=== PATIENT | male | born 1955 | race Caucasian/White ===

== ENCOUNTER 2020-09-30 05:20 | Day surgery (SDC) | payer MEDICARE, MEDICAID ==
[2020-09-22 15:51] LABS: BASOPHILS # (AUTO) 0.1 X10'3 (0-0.2); BASOPHILS % (AUTO) 1.2 % (0-1); EOSINOPHILS # (AUTO) 0.4 X10'3 (0-0.9); EOSINOPHILS % (AUTO) 5.4 % (0-6); LYMPHOCYTES # (AUTO) 2.1 X10'3 (1.1-4.8); LYMPHOCYTES % (AUTO) 25.4 % (21-51); MEAN CORPUSCULAR HEMOGLOBIN 25.6 PG (27.0-31.0); MEAN CORPUSCULAR HGB CONC 31.8 g/dL (33.0-36.5); MEAN CORPUSCULAR VOLUME 80.7 FL (78-98); MEAN PLATELET VOLUME 9.5 FL (7.4-10.4); MONOCYTES # (AUTO) 0.8 X10'3 (0-0.9); MONOCYTES % (AUTO) 9.6 % (2-12); NEUTROPHILS # (AUTO) 4.8 X10'3 (1.8-7.7); NEUTROPHILS % (AUTO) 58.4 % (42-75); PRE OP HEMATOCRIT 42.1 % (42.0-52.0); PRE OP HEMOGLOBIN 13.4 g/dL (14.0-17.9); PRE OP PLATELET COUNT 325 X10'3 (140-440); RED BLOOD COUNT 5.22 X10'6 (4.70-6.10); RED CELL DISTRIBUTION WIDTH 16.7 % (11.5-14.5)
[2020-09-22 16:05] LABS: PRE OP INR 1.1 INR; PRE OP PROTIME 11.1 SECONDS (9.0-12.0)
[2020-09-22 16:07] LABS: ALBUMIN 3.9 G/DL (3.4-5.0); ALKALINE PHOSPHATASE 65 IU/L (46-116); BLOOD UREA NITROGEN 18 MG/DL (7-18); BUN/CREATININE RATIO 18.2 (5.4-32.0); CALCIUM 8.9 MG/DL (8.5-10.1); CHLORIDE 103 MMOL/L (99-107); CREATININE 0.99 MG/DL (0.60-1.10); PRE OP ALT 30 U/L (30-65); PRE OP ANION GAP 9 (8-16); PRE OP AST 19 U/L (10-37); PRE OP BILIRUB, TOTAL 0.4 MG/DL (0.0-1.0); PRE OP GLUCOSE 109 MG/DL (70-104); PRE OP POTASSIUM 3.9 MMOL/L (3.4-5.1); PRE OP SODIUM 138 MMOL/L (135-145); TOTAL CARBON DIOXIDE 25.8 MMOL/L (24-32); TOTAL PROTEIN 7.7 G/DL (6.4-8.2); eGFR 75 ML/MIN
[~2020-09-30] VITALS: Ht 175.3 cm; Wt 116.6 kg
[2020-09-30] VITALS (16 sets, daily range): BP systolic 94–142; BP diastolic 39–75
[~2020-09-30 05:20] MED LIST: FLO0.4C PO; GLACOMA EYE DROPS EACHEYE; LOSA1TAB41 PO; METO-395 PO; OMEP-50 PO; ringers solution, lacted 1,000 ML IV SCH
[2020-09-30] MEDS ORDERED: ceFAZolin 2gm in dextrose, iso 50 ML IV ONE (05:30)
[2020-09-30] MEDS ORDERED: vancomycin 1,500 MG in NS 300ml IV soln IV ONE (05:30)
[2020-09-30] MEDS ORDERED: DOCUMENT DATE & TIME OF BETA-BLOCKER PO ONE (05:30)
[2020-09-30] MEDS ORDERED: tranexamic acid 1gm/0.7% sal. 100 ML IV ONE (05:30)
[2020-09-30] MEDS ORDERED: famotidine 20mg tablet PO ONE (05:30)
[2020-09-30] MEDS ORDERED: ceFAZolin 1000mg inj ONE (07:04)
[2020-09-30] MEDS ORDERED: tetracaine 1% (10mg/ml) pres. free inj. ONE (07:24)
[2020-09-30] MEDS ORDERED: morphine /PF 1mg/ml 10ml inj. ONE (07:33)
[2020-09-30] MEDS ORDERED: MIDAZolam 5mg/5ml vial ONE (07:34)
[2020-09-30] MEDS ORDERED: propofol inj 20 ML IV ONE ×3 (08:05)
[2020-09-30] MEDS ORDERED: ondansetron/PF 4mg/2ml inj IV PRN ×3 (08:25→10:40)
[2020-09-30] MEDS ORDERED: proCHLORperazine 10 MG/2 ml inj IV PRN (08:25)
[2020-09-30] MEDS ORDERED: acetaminophen 1,000mg/100ml IV 100 ML IV PRN (08:25)
[2020-09-30] MEDS ORDERED: morphine 2 MG/ML inj. syringe IV PRN (08:25)
[2020-09-30] MEDS ORDERED: labetalol 20mg/4ml (5mg/ml) syringe IV PRN (08:25)
[2020-09-30] MEDS ORDERED: meperidine/PF 25mg/ml syringe IV PRN ×3 (08:25)
[2020-09-30] MEDS ORDERED: hydrALAZINE 20mg/ml inj. IV PRN (08:25)
[2020-09-30] MEDS ORDERED: ringers solution, lacted 1,000 ML IV SCH (08:25)
[2020-09-30] MEDS ORDERED: morphine 4 MG/ML inj SYRINge IV PRN (08:25)
[2020-09-30] MEDS ORDERED: ePHEDrine 50MG/ML INJ. ONE (08:32)
[2020-09-30] MEDS ORDERED: 0.9 % SODIUM CHLORIDE 10 ML VIAL ONE (08:33)
[2020-09-30] MEDS ORDERED: phenylephrine 10mg/ml inj. ONE (09:05)
[2020-09-30] MEDS ORDERED: albumin (Human) 5% 250ml 250 ML IV ONE ×2 (09:49)
--- NOTE | 2020-09-30 10:30 | NUR ---
Received from OR via BED , accompanied by Anesthesiologist DR MILLER and report given by Anesthesiolgist. PATIENT WAKING UP, DENIES PAIN, V/S WNL, NEUROVASCULAR CHECKS INTACT, 18G PIV LUE , SANDY DRESSING TO RIGHT HIP CDI W/ COLD POWDER PACK , SENSATION T-9-10.
[2020-09-30] MEDS ORDERED: diphenhydrAMINE 50 mg/ml inj IV PRN (10:35)
[2020-09-30] MEDS ORDERED: naloxone 2mg/2ml inj 2 MG in normal saline 500ml IV soln 500 ML IV PRN (10:35)
[2020-09-30] MEDS ORDERED: bisacodyl 10mg suppository rectal RC PRN (10:40)
[2020-09-30] MEDS ORDERED: acetaminophen 325mg tablet PO PRN (10:40)
[2020-09-30] MEDS ORDERED: HYDROmorphone inj. 0.5 MG/0.5 ML DISP.SYRIN IV PRN (10:40)
[2020-09-30] MEDS ORDERED: magnesium hydroxide 30ml (MOM) UD suspension PO PRN (10:40)
[2020-09-30] MEDS ORDERED: HYDROcodone/acetaminophen 10/325mg tab PO PRN (10:40)
[2020-09-30] MEDS ORDERED: diphenhydrAMINE 25mg capsule PO PRN ×2 (10:40)
--- NOTE | 2020-09-30 11:30 | NUR ---
PATIENT A&OX4, DENIES PAIN, V/S WNL, NEUROVASCULAR CHECKS INTACT, 18G PIV LUE , SANDY DRESSING TO RIGHT HIP CDI W/ COLD POWDER PACK , SENSATION T-12. PATIENT TAKEN TO 344A WITH ALL BELONGINGS AND HOOKED UP TO MONITORS IN ROOM AND REPORT GIVEN TO RN WHO HAS TAKEN OVER PATIENT CARE.
[2020-09-30] MEDS: potassium Cl 20mEq in NS 1,000 ML IV SCH (11:42)
[2020-09-30] MEDS: ceFAZolin/D5W- 1GM premix 50 ML IV SCH (16:56)
[2020-09-30] MEDS ORDERED: aspirin 325mg tablet PO SCH (17:30)
[2020-09-30] MEDS ORDERED: aspirin 81mg tablet.DR PO SCH (17:59)
--- NOTE | 2020-09-30 18:16 | NUR ---
Problems reprioritized. Patient report given, questions answered & plan of care reviewed with Nina CASAS.
--- NOTE | 2020-09-30 18:16 | NUR ---
Patient in room [facility]. I have received report from Tere CASAS and had the opportunity to ask questions and assume patient care.
[2020-09-30] MEDS ORDERED: vancomycin/NS 1 GM ADD-VANTAGE 250 ML IV SCH (20:00)
[2020-09-30] MEDS ORDERED: metoprolol succinate 25mg (24-HOUR) SR. Tablet PO SCH (21:00)
[2020-09-30] MEDS ORDERED: losartan 50mg tablet PO SCH (21:00)
[2020-09-30] MEDS ORDERED: sennosides 8.6mg tablet PO SCH (21:00)
[2020-09-30] MEDS ORDERED: HYDROchlorothiazide 12.5mg capsule PO SCH (21:00)
[2020-10-01] VITALS: BP 116/68
[2020-10-01] MEDS: ceFAZolin/D5W- 1GM premix 50 ML IV SCH (00:02)
[2020-10-01] MEDS: potassium Cl 20mEq in NS 1,000 ML IV SCH (00:29)
[2020-10-01 04:00] VITALS: BP 124/80
[2020-10-01] MEDS: HYDROcodone/acetaminophen 10/325mg tab PO PRN ×2 (05:13→12:06)
--- NOTE | 2020-10-01 06:09 | NUR ---
Problems reprioritized. Patient report given, questions answered & plan of care reviewed with April CASAS.
[2020-10-01 06:34] LABS: BASOPHILS # (AUTO) 0.1 X10'3 (0-0.2); BASOPHILS % (AUTO) 0.5 % (0-1); EOSINOPHILS # (AUTO) 0.1 X10'3 (0-0.9); EOSINOPHILS % (AUTO) 0.5 % (0-6); HEMATOCRIT 32.7 % (42.0-52.0); HEMOGLOBIN 10.6 g/dl (14.0-17.9); LYMPHOCYTES # (AUTO) 1.4 X10'3 (1.1-4.8); MEAN CORPUSCULAR HEMOGLOBIN 25.5 PG (27.0-31.0); MEAN CORPUSCULAR HGB CONC 32.4 g/dL (33.0-36.5); MEAN CORPUSCULAR VOLUME 78.5 FL (78-98); MEAN PLATELET VOLUME 9.1 FL (7.4-10.4); MONOCYTES # (AUTO) 1.6 X10'3 (0-0.9); MONOCYTES % (AUTO) 11.8 % (2-12); NEUTROPHILS # (AUTO) 10.5 X10'3 (1.8-7.7); NEUTROPHILS % (AUTO) 77.2 % (42-75); PLATELET COUNT 266 X10'3 (140-440); RED BLOOD COUNT 4.17 X10'6 (4.70-6.10); RED CELL DISTRIBUTION WIDTH 17.2 % (11.5-14.5); WHITE BLOOD COUNT 13.7 X10'3 (4.5-11.0)
--- NOTE | 2020-10-01 06:45 | NUR ---
Patient in room [facility] 344A. I have received report from YESSENIA MEJÍA and had the opportunity to ask questions and assume patient care.
[2020-10-01 07:00] VITALS: BP 120/83
[2020-10-01 07:09] LABS: ALANINE AMINOTRANSFERASE 20 U/L (12-78); ALBUMIN 3.1 G/DL (3.4-5.0); ALKALINE PHOSPHATASE 47 IU/L (46-116); ANION GAP 11 (8-16); ASPARTATE AMINO TRANSFERASE 15 U/L (10-37); BILIRUBIN,TOTAL 0.8 MG/DL (0.1-1.0); BLOOD UREA NITROGEN 19 MG/DL (7-18); BUN/CREATININE RATIO 18.1 (5.4-32.0); CALCIUM 7.9 MG/DL (8.5-10.1); CHLORIDE 102 MMOL/L (99-107); CREATININE 1.05 MG/DL (0.60-1.10); GLUCOSE 123 MG/DL (70-104); POTASSIUM 3.9 MMOL/L (3.5-5.1); SODIUM 138 MMOL/L (135-145); TOTAL CARBON DIOXIDE 25.4 MMOL/L (24-32); TOTAL PROTEIN 6.3 G/DL (6.4-8.2); eGFR 70 ML/MIN
[2020-10-01] MEDS ORDERED: ASPI-1071 PO ×2 (07:29→07:56)
[2020-10-01] MEDS ORDERED: HYDR-3965 PO (07:44)
[2020-10-01] MEDS ORDERED: HYDR-3972 PO (07:56)
[2020-10-01] MEDS ORDERED: pantoprazole 40mg Tablet.DR PO SCH (08:00)
[2020-10-01] MEDS ORDERED: tamsulosin 0.4mg capsule PO SCH (08:00)
[2020-10-01 11:00] VITALS: BP 96/46
--- NOTE | 2020-10-01 19:21 | NUR ---
PATIENT URINATED A SMALL AMOUNT, IT WAS [place] IN COLOR, NOT ENOUGH TO MEASURE, BLADDER SCANNED AND SCAN SHOWED 79ML IN BLADDER, Addendum: 10/01/20 at 1923 by April Escobar RN Amended: Links added.
--- NOTE | 2020-10-01 19:27 | NUR ---
PATIENT STABLE AND APPROPRIATE FOR DISCHARGE, IV TAKEN OUT, EDUCATION GIVEN, NEW PRESCRIPTIONS SENT TO PREFERRED PHARMACY, ALL BELONGINGS SENT WITH PATIENT, PATIENT TAKEN IN WHEELCHAIR TO LOBBY TO AN AWAITING CAR WHERE [id number] WILL TAKE PATIENT HOME
== END 2020-10-01 15:45 | disposition home or self-care (01) ==
LOC: PAS 05:20 → SUR 3N 10:45 → PAS 10-01 15:45
PROVIDERS: ATTEND Orthopaedic Surgery
DX: M16.11 Unilateral primary osteoarthritis, right hip (principal); I10 Essential (primary) hypertension; Z82.49 Family history of ischemic heart disease and other diseases of the circulatory system; Z01.810 Encounter for preprocedural cardiovascular examination
CPT/HCPCS: 27130; 36415; 80053; 82948; 85025; 85610; 85730; 86885; 86900; 86901; 86920; 87081; 93005; 97110; 97161; 97530; C1758; C1776; J0690; J2250; J2270; J2370; J2405; J2704; J3370; J3480; J7040; P9045; Q0163; A4618; A7000; G0378; J7120

== ENCOUNTER 2021-10-11 11:02 | Emergency (ER) | payer MEDICARE, MEDICAID ==
[~2021-10-11] VITALS: Ht 175.3 cm; Wt 119.5 kg
[~2021-10-11 11:02] MED LIST changes: +ASPI-1071 PO; -OMEP-50 PO; +OMEP20CA16 PO; -ringers solution, lacted 1,000 ML IV SCH
[2021-10-11 11:07] VITALS: BP 134/80
[2021-10-11] MEDS ORDERED: acetaminophen 325mg tablet PO ONE (12:00)
== END 2021-10-11 13:10 | disposition home or self-care (01) ==
LOC: ER 11:03
DX: M54.2 Cervicalgia (principal); M25.511 Pain in right shoulder; M25.512 Pain in left shoulder; M25.532 Pain in left wrist; Z88.8 Allergy status to other drugs, medicaments and biological substances; Z79.82 Long term (current) use of aspirin; Z79.899 Other long term (current) drug therapy; V87.7XXA Person injured in collision between other specified motor vehicles (traffic), initial encounter; Y93.89 Activity, other specified; Y92.89 Other specified places as the place of occurrence of the external cause; Y99.8 Other external cause status
CPT/HCPCS: 71045; 73110; 93005; 99283; 99284

== ENCOUNTER 2022-04-12 19:54 | Emergency (ER) | payer OTHER, MEDICARE, MEDICAID ==
[~2022-04-12] VITALS: Ht 171.4 cm; Wt 120.0 kg
[2022-04-12 20:28] VITALS: BP 140/84
== END 2022-04-13 02:29 | disposition left against medical advice (07) ==
LOC: ER 19:54
DX: S61.411A Laceration without foreign body of right hand, initial encounter (principal); Z53.21 Procedure and treatment not carried out due to patient leaving prior to being seen by health care provider; X58.XXXA Exposure to other specified factors, initial encounter; Y93.89 Activity, other specified; Y92.89 Other specified places as the place of occurrence of the external cause; Y99.8 Other external cause status

== ENCOUNTER 2022-04-13 12:18 | Emergency (ER) | payer MEDICARE, MEDICAID ==
[~2022-04-13] VITALS: Ht 175.3 cm; Wt 118.2 kg
[2022-04-13 12:24] VITALS: BP 118/75
[2022-04-13] MEDS ORDERED: acetaminophen 325mg tablet PO ONE (14:35)
[2022-04-13] MEDS ORDERED: mupirocin 2% ointment 22GM TP STA (15:13)
== END 2022-04-13 15:44 | disposition home or self-care (01) ==
LOC: ER 12:18
DX: S61.411A Laceration without foreign body of right hand, initial encounter (principal); I10 Essential (primary) hypertension; E78.00 Pure hypercholesterolemia, unspecified; Z79.82 Long term (current) use of aspirin; Z88.5 Allergy status to narcotic agent; Z88.6 Allergy status to analgesic agent; Z79.899 Other long term (current) drug therapy; W18.39XA Other fall on same level, initial encounter; Y93.89 Activity, other specified; Y92.89 Other specified places as the place of occurrence of the external cause; Y99.8 Other external cause status
CPT/HCPCS: 99283; A6449

== ENCOUNTER 2024-07-23 13:45 | Outpatient (CLI) | payer MEDICARE, MEDICAID | END 2024-07-23 23:59 | disposition home or self-care (01) | LOC: RAD 13:45 | PROVIDERS: ATTEND Student in an Organized Health Care Education/Training Program | DX: R06.02 Shortness of breath (principal) | CPT/HCPCS: 71046 ==

== ENCOUNTER 2024-08-11 12:20 | Emergency (ER) | payer MEDICARE, MEDICAID ==
[~2024-08-11] VITALS: Ht 175.3 cm; Wt 113.5 kg
[2024-08-11 14:24] LABS: BASOPHILS % (AUTO) 0.5 % (0-1); EOSINOPHILS # (AUTO) 0.4 X10'3 (0-0.9); EOSINOPHILS % (AUTO) 4.4 % (0-6); HEMATOCRIT 41.6 % (42.0-52.0); HEMOGLOBIN 13.9 g/dl (14.0-17.9); LYMPHOCYTES # (AUTO) 1.5 X10'3 (1.1-4.8); LYMPHOCYTES % (AUTO) 17.6 % (21-51); MEAN CORPUSCULAR HEMOGLOBIN 28.8 PG (27.0-31.0); MEAN CORPUSCULAR HGB CONC 33.5 g/dL (33.0-36.5); MEAN CORPUSCULAR VOLUME 85.9 FL (78-98); MEAN PLATELET VOLUME 8.9 FL (7.4-10.4); NEUTROPHILS # (AUTO) 5.6 X10'3 (1.8-7.7); NEUTROPHILS % (AUTO) 65.5 % (42-75); PLATELET COUNT 342 X10'3 (140-440); RED BLOOD COUNT 4.84 X10'6 (4.70-6.10); WHITE BLOOD COUNT 8.5 X10'3 (4.5-11.0)
[2024-08-11 14:37] LABS: ALANINE AMINOTRANSFERASE 35 U/L (12-78); ALBUMIN 3.2 G/DL (3.4-5.0); ALBUMIN/GLOBULIN RATIO 0.7 (1.1-1.5); ALKALINE PHOSPHATASE 139 IU/L (46-116); ANION GAP 6 (8-16); ASPARTATE AMINO TRANSFERASE 19 U/L (10-37); BILIRUBIN,TOTAL 1.1 MG/DL (0.1-1.0); BLOOD UREA NITROGEN 14 MG/DL (7-18); BUN/CREATININE RATIO 16.3 (10.0-20.0); CALCIUM 8.9 MG/DL (8.5-10.1); CHLORIDE 100 MMOL/L (99-107); CREATININE 0.86 MG/DL (0.60-1.10); GLUCOSE 113 MG/DL (70-104); SODIUM 133 MMOL/L (135-145); TOTAL PROTEIN 7.9 G/DL (6.4-8.2); eCRCL 79 ML/MIN; eGFR 88 ML/MIN
[2024-08-11 14:44] LABS: GIANT PLATELET FEW; LARGE PLATELETS FEW; PLATELET ESTIMATE NORMAL
[2024-08-11 14:46] LABS: PRO BRAIN NATRIURETIC PEPTIDE 254 PG/ML (0-125); THYROID STIMULATING HORMONE 0.54 ulU/ml (0.34-4.50)
[2024-08-11 15:44] VITALS: BP 106/68; PULSE 62; RESP 14; TEMP 98.2; O2SAT 98
== END 2024-08-11 15:49 | disposition home or self-care (01) ==
LOC: ER 12:21
DX: I11.9 Hypertensive heart disease without heart failure (principal); E05.90 Thyrotoxicosis, unspecified without thyrotoxic crisis or storm; E78.00 Pure hypercholesterolemia, unspecified; R07.89 Other chest pain; Z88.5 Allergy status to narcotic agent; Z88.8 Allergy status to other drugs, medicaments and biological substances; Z79.82 Long term (current) use of aspirin
CPT/HCPCS: 36415; 71045; 80053; 83880; 84439; 84443; 84484; 85008; 85025; 93005; 99285